=== PATIENT | female | born 1945 | race African-American/Black ===

== ENCOUNTER 2017-10-06 12:29 | Inpatient (IN) | payer BC ==
[~2017-10-06] VITALS: Ht 157.5 cm; Wt 54.9 kg
[2017-10-06] MEDS ORDERED: OYSCO-500500 M1 PO (12:37)
[2017-10-06] MEDS ORDERED: LISINOPRIL20 MG ORAL (12:37)
[2017-10-06] MEDS ORDERED: PRAVASTATIN SOD20 M1 ORAL ×2 (12:37→17:34)
[2017-10-06] MEDS ORDERED: PRILOSEC OTC20 MG ORAL (12:37)
[2017-10-06] MEDS ORDERED: LORATADINE10 M1 PO (12:37)
[2017-10-06] MEDS ORDERED: MAGNESIUM OXID250 MG PO (12:37)
[2017-10-06] MEDS ORDERED: WARFARIN SODIUM5 MG ORAL (12:37)
[2017-10-06] MEDS ORDERED: FOLIC ACID1 MG ORAL (12:37)
[2017-10-06] MEDS ORDERED: DIGOXIN125 MCG ORAL (12:37)
[2017-10-06] MEDS ORDERED: AMLODIPINE BESYL5 MG ORAL (12:37)
[2017-10-06] MEDS ORDERED: CLOPIDOGREL75 MG ORAL (12:37)
[2017-10-06] MEDS ORDERED: LABETALOL HCL200 MG ORAL (12:37)
[2017-10-06] MEDS ORDERED: FLUTICASONE PRO16 G1 NASAL (12:37)
[2017-10-06] MEDS ORDERED: Sodium Chloride 500ML 500 ML IV ONE (12:38)
[2017-10-06 13:03] LABS: HEMATOCRIT 45.5 % (37.0-47.0); HEMOGLOBIN 14.3 G/DL (12.0-16.0); MEAN CORPUSCULAR VOLUME 85 FL (80-99); PLATELET COUNT 285 K/UL (150-450); RED BLOOD COUNT 5.34 M/UL (4.20-5.40); RED CELL DISTRIBUTION WIDTH 14.2 % (11.6-14.8); WHITE BLOOD COUNT 18.3 K/UL (4.8-10.8)
[2017-10-06 13:13] LABS: ANION GAP 10 mmol/L (5-15); BLOOD UREA NITROGEN 16 mg/dL (7-18); CALCIUM 9.1 MG/DL (8.5-10.1); CARBON DIOXIDE 28 MMOL/L (21-32); CHLORIDE 103 MMOL/L (98-107); SODIUM 141 MMOL/L (136-145)
[2017-10-06 13:27] LABS: ALANINE AMINOTRANSFERASE 24 U/L (12-78); ALBUMIN 4.4 G/DL (3.4-5.0); ALBUMIN/GLOBULIN RATIO 1.1 (1.0-2.7); ALKALINE PHOSPHATASE 93 U/L (46-116); ASPARTATE AMINO TRANSFERASE 22 U/L (15-37); BILIRUBIN,TOTAL 0.9 MG/DL (0.2-1.0); CKMB 1.1 NG/ML (0.0-3.6); CREATINE KINASE 268 U/L (26-308)
[2017-10-06 14:00] VITALS: BP 138/66
--- NOTE | 2017-10-06 14:23 | Emergency Room Report ---
History of Present Illness General Chief Complaint: Abdominal Pain Source: Patient (Madina Ascencio DO) Present Illness HPI Patient presents with complaints of abdominal pain Patient reports that she had a biopsy performed yesterday looking at the medical records appears the patient had upper endoscopy with biopsy Patient presents that she has ongoing pain the pain is the same as before she had the endoscopy and reports that that was the reason for obtaining endoscopy she also had increased nausea vomiting Denies any lower abdominal pain denies any fevers denies any flank pain (Madina Ascencio DO) Allergies: Coded Allergies: CLARITHROMYCIN (Verified Allergy, Unknown, 10/06/17) PENICILLINS (Verified Allergy, Unknown, 10/06/17) Uncoded Allergies: ENVIRONMENTAL (Allergy, Unknown, 10/06/17) SULFA (Allergy, Unknown, 10/06/17) Patient History Past Medical History: see triage record Pertinent Family History: none Reviewed Nursing Documentation: PMH: Agreed; PSxH: Agreed (Madina Ascencio DO) Review of Systems All Other Systems: negative except mentioned in HPI (Madina Ascencio DO) Physical Exam Vital Signs Date Time Temp Pulse Resp B/P (MAP) Pulse Ox O2 Delivery O2 Flow Rate FiO2 10/06/17 12:29 97.3 82 18 125/79 99 Room Air 97.3 Sp02 EP Interpretation: reviewed, normal General Appearance: well appearing, no apparent distress Head: normocephalic, atraumatic Eyes: bilateral eye PERRL, bilateral eye EOMI ENT: hearing grossly normal, normal pharynx, TMs + canals normal, uvula midline Neck: full range of motion, supple, no meningismus, no bony tend Respiratory: lungs clear, normal breath sounds, no rhonchi, no respiratory distress, no retraction, no accessory muscle use Cardiovascular #1: normal peripheral pulses, regular rate, rhythm, no edema, no gallop, no JVD, no murmur Gastrointestinal: normal bowel sounds, non tender, soft, no mass, no organomegaly, non-distended, no guarding, no hernia, no pulsatile mass, no rebound Genitourinary: no CVA tenderness Musculoskeletal: normal inspection Neurologic: oriented x3, responsive, guide visitor III-XII nml as tested, motor strength/ tone normal, sensory intact Psychiatric: mood/affect normal Skin: normal color, no rash, warm/dry, palpation normal Lymphatic: normal inspection, no adenopathy (Madina Ascencio DO) Medical Decision Making Diagnostic Impression: Primary Impression: Abdominal pain ER Course With the history exam and presentation, multiple differentials considered, including but not limited to appendicitis, gastritis, cholecystitis, diverticulitis Given the recent upper endoscopy bowel perforation also entertained Chest x-ray does not show any free air patient's abdominal exam is soft her white blood cell count however does return elevated patient is covered with broad-spectrum antibiotics and requires further inpatient care Labs Test 10/06/17 12:50 White Blood Count 18.3 K/UL (4.8-10.8) Red Blood Count 5.34 M/UL (4.20-5.40) Hemoglobin 14.3 G/DL (12.0-16.0) Hematocrit 45.5 % (37.0-47.0) Mean Corpuscular Volume 85 FL (80-99) Mean Corpuscular Hemoglobin 26.8 PG (27.0-31.0) Mean Corpuscular Hemoglobin Concent 31.6 G/DL (32.0-36.0) Red Cell Distribution Width 14.2 % (11.6-14.8) Platelet Count 285 K/UL (150-450) Mean Platelet Volume 6.2 FL (6.5-10.1) Neutrophils (%) (Auto) % (45.0-75.0) Lymphocytes (%) (Auto) % (20.0-45.0) Monocytes (%) (Auto) % (1.0-10.0) Eosinophils (%) (Auto) % (0.0-3.0) Basophils (%) (Auto) % (0.0-2.0) Differential Total Cells Counted 100 Neutrophils % (Manual) 89 % (45-75) Lymphocytes % (Manual) 8 % (20-45) Monocytes % (Manual) 2 % (1-10) Eosinophils % (Manual) 0 % (0-3) Basophils % (Manual) 1 % (0-2) Band Neutrophils 0 % (0-8) Platelet Estimate Adequate Platelet Morphology Normal Red Blood Cell Morphology Normal Sodium Level 141 MMOL/L (136-145) Potassium Level 4.0 MMOL/L (3.5-5.1) Chloride Level 103 MMOL/L (98-107) Carbon Dioxide Level 28 MMOL/L (21-32) Anion Gap 10 mmol/L (5-15) Blood Urea Nitrogen 16 mg/dL (7-18) Creatinine 1.0 MG/DL (0.55-1.30) Estimat Glomerular Filtration Rate mL/min (>60) Glucose Level 113 MG/DL (74-106) Calcium Level 9.1 MG/DL (8.5-10.1) Total Bilirubin 0.9 MG/DL (0.2-1.0) Aspartate Amino Transf (AST/SGOT) 22 U/L (15-37) Alanine Aminotransferase (ALT/SGPT) 24 U/L (12-78) Alkaline Phosphatase 93 U/L (46-116) Total Creatine Kinase 268 U/L (26-308) Creatine Kinase MB 1.1 NG/ML (0.0-3.6) Creatine Kinase MB Relative Index 0.4 Troponin I 0.000 ng/mL (0.000-0.056) Total Protein 8.3 G/DL (6.4-8.2) Albumin 4.4 G/DL (3.4-5.0) Globulin 3.9 g/dL Albumin/Globulin Ratio 1.1 (1.0-2.7) (Madina Ascencio DO) ER Course Patient presents emergency department today complaining of abdominal pain. Differential considerations include ruptured viscus gastritis gastric ulcer GI bleeding just to name a few. Patient was initially seen by Dr. Madina Chaudhry and signed out to me for final disposition. I've also evaluated patient. Given patient's presentation and CT scan was obtained CT scan did not show any evidence of perforated viscus. However given elevated white blood cell count and abdominal pain felt the patient require admission. Case was discussed with Dr. Enrike Woods. Dr. Mckoy will also be consult. Patient will be admitted to [facility] further treatment. Labs Test 10/06/17 12:50 10/06/17 14:15 White Blood Count 18.3 K/UL (4.8-10.8) Red Blood Count 5.34 M/UL (4.20-5.40) Hemoglobin 14.3 G/DL (12.0-16.0) Hematocrit 45.5 % (37.0-47.0) Mean Corpuscular Volume 85 FL (80-99) Mean Corpuscular Hemoglobin 26.8 PG (27.0-31.0) Mean Corpuscular Hemoglobin Concent 31.6 G/DL (32.0-36.0) Red Cell Distribution Width 14.2 % (11.6-14.8) Platelet Count 285 K/UL (150-450) Mean Platelet Volume 6.2 FL (6.5-10.1) Neutrophils (%) (Auto) % (45.0-75.0) Lymphocytes (%) (Auto) % (20.0-45.0) Monocytes (%) (Auto) % (1.0-10.0) Eosinophils (%) (Auto) % (0.0-3.0) Basophils (%) (Auto) % (0.0-2.0) Differential Total Cells Counted 100 Neutrophils % (Manual) 89 % (45-75) Lymphocytes % (Manual) 8 % (20-45) Monocytes % (Manual) 2 % (1-10) Eosinophils % (Manual) 0 % (0-3) Basophils % (Manual) 1 % (0-2) Band Neutrophils 0 % (0-8) Platelet Estimate Adequate Platelet Morphology Normal Red Blood Cell Morphology Normal Sodium Level 141 MMOL/L (136-145) Potassium Level 4.0 MMOL/L (3.5-5.1) Chloride Level 103 MMOL/L (98-107) Carbon Dioxide Level 28 MMOL/L (21-32) Anion Gap 10 mmol/L (5-15) Blood Urea Nitrogen 16 mg/dL (7-18) Creatinine 1.0 MG/DL (0.55-1.30) Estimat Glomerular Filtration Rate mL/min (>60) Glucose Level 113 MG/DL (74-106) Calcium Level 9.1 MG/DL (8.5-10.1) Total Bilirubin 0.9 MG/DL (0.2-1.0) Aspartate Amino Transf (AST/SGOT) 22 U/L (15-37) Alanine Aminotransferase (ALT/SGPT) 24 U/L (12-78) Alkaline Phosphatase 93 U/L (46-116) Total Creatine Kinase 268 U/L (26-308) Creatine Kinase MB 1.1 NG/ML (0.0-3.6) Creatine Kinase MB Relative Index 0.4 Troponin I 0.000 ng/mL (0.000-0.056) Total Protein 8.3 G/DL (6.4-8.2) Albumin 4.4 G/DL (3.4-5.0) Globulin 3.9 g/dL Albumin/Globulin Ratio 1.1 (1.0-2.7) Urine Color Yellow Urine Appearance Clear Urine pH 6 (4.5-8.0) Urine Specific [place] 1.020 (1.005-1.035) Urine Protein 1+ (NEGATIVE) Urine Glucose (UA) Negative (NEGATIVE) Urine Ketones 2+ (NEGATIVE) Urine Occult Blood 1+ (NEGATIVE) Urine Nitrite Negative (NEGATIVE) Urine Bilirubin Negative (NEGATIVE) Urine Urobilinogen Normal MG/DL (NORMAL) Urine Leukocyte Esterase 1+ (NEGATIVE) Urine RBC 2-4 /HPF (0 - 2) Urine WBC 2-4 /HPF (0 - 2) Urine Squamous Epithelial Cells Few /LPF (NONE/OCC) Urine Amorphous Sediment Few /LPF (NONE) Urine Bacteria Few /HPF (NONE) (Alferdo Hidalgo MD) Chest X-Ray Diagnostic Results Chest X-Ray Diagnostic Results : Chest X-Ray Ordered: Yes # of Views/Limited/Complete: 1 View Indication: Chest Pain EP Interpretation: Yes Interpretation: no consolidation, no effusion, no pneumothorax Impression: No acute disease Electronically Signed by: Madina Ascencio DO (Madina Ascencio DO) Last Vital Signs Date Time Temp Pulse Resp B/P (MAP) Pulse Ox O2 Delivery O2 Flow Rate FiO2 10/06/17 12:29 97.3 82 18 125/79 99 Room Air 97.3 Status: improved (Madina Ascencio DO) Status: improved (Alfredo Hidalgo MD) Disposition: ADMITTED INPATIENT Condition: Serious Referrals: NOT CHOSEN IPA/,REFERRING (PCP) Madina Ascencio DO Oct 06, 2017 14:23 Alfredo Hidalgo MD Oct 06, 2017 16:06
--- NOTE | 2017-10-06 14:50 | Diagnostic Imaging Report ---
Indication: Chest pain Technique: XRAY Chest 1v Comparison: 05/17/2007 Findings: Heart size and mediastinal contours within normal limits and stable compared to the prior exam. Patient again noted to be status post median sternotomy. There is no focal airspace consolidation, pleural effusion or pneumothorax. There are degenerative changes in the spine. No acute osseous abnormality. Impression: No radiographic evidence of acute cardiopulmonary disease.
[2017-10-06 14:57] LABS: APPEARANCE,URINE CLEAR; BILIRUBIN, URINE NEGATIVE (NEGATIVE); GLUCOSE, URINE (UA) NEGATIVE (NEGATIVE); KETONES,URINE 2+ (NEGATIVE); LEUKOCYTE ESTERASE ,URINE 1+ (NEGATIVE); NITRITE,URINE NEGATIVE (NEGATIVE); PH,URINE 6 (4.5-8.0); PROTEIN,URINE 1+ (NEGATIVE); UROBILINOGEN,URINE NORMAL (NORMAL)
[2017-10-06 15:00] LABS: COLOR,URINE YELLOW
--- NOTE | 2017-10-06 15:28 | Diagnostic Imaging Report ---
Indication: Abdominal pain Technique: Noncontrast CT of the abdomen and pelvis utilizing automated exposure control. Axial, sagittal and coronal reformats presented. CT dose: Total DLP 620.54 mGycm; CTDI vol 12.77 mGy Comparison: None Findings: Please note that evaluation of the abdominal and pelvic viscera and vascular structures is limited without the use of intravenous and oral contrast. Within these limitations the following observations are made: There is dependent atelectasis in the lung bases. Heart size within normal limits. No definite pericardial effusion. Patient is status post cholecystectomy. Noncontrast evaluation of the liver, spleen, adrenal glands and pancreas grossly unremarkable. Kidneys are symmetric in size. There is a cyst in the upper pole the right kidney. There is no urinary tract stone or hydronephrosis bilaterally. Bladder is decompressed, limiting its evaluation. Uterus and adnexa are grossly unremarkable for noncontrast CT. There is no free intraperitoneal air or fluid. There is a biopsy clip in the distal stomach. There is some distal gastric wall thickening which may be related to underdistention however the possibility of peptic ulcer disease or other etiologies not excludable. Correlate with findings of recent endoscopy. There is no evidence of bowel obstruction. Appendix is normal. No pathologically enlarged lymphadenopathy. Abdominal aorta normal in caliber with scattered atherosclerotic calcification. There is a tiny fat-containing umbilical hernia. There are degenerative changes in the spine. No acute osseous abnormality. There is a sclerotic focus in the left pubic bone which may represent a bone island. IMPRESSION: Limited exam without intravenous and oral contrast. Within these limitations: * Biopsy clip in the distal stomach/gastric antrum. Gastric wall thickening this area is noted which may be related to underdistention, gastritis, peptic ulcer disease or mass. Correlate with findings of recent endoscopy. * No free intraperitoneal air. No evidence of bowel obstruction. * Normal appendix. Additional findings as above. The CT scanner at [facility] is accredited by the [employer] and the scans are performed using protocols designed to limit radiation exposure to as low as reasonably achievable to attain images of sufficient resolution adequate for diagnostic evaluation.
[2017-10-06 16:00] VITALS: BP 117/55
[2017-10-06] MEDS ORDERED: Pantoprazole Inj IVP ONE (16:15)
[2017-10-06] MEDS ORDERED: VITAMIN B-12500 MCG ORAL (17:42)
[2017-10-06 18:00] VITALS: BP 127/49
[2017-10-06] MEDS ORDERED: Isovue-300 100ml vial INJ PRN (18:15)
[2017-10-06 19:52] VITALS: BP 124/60
--- NOTE | 2017-10-06 20:22 | General Progress Note ---
Assessment/Plan Assessment/Plan Assessment - Few months of progressive abd pain - abd pain (? slight worse) now with N/V and leukocytosis since EGD yesterday - metal clip seen on CT in gastric antrum - ? source / nature Recommendations - NPO/IVF - broad spectrum abx - follow labs - CT abd/pelvis with PO/IV contrast - await call back from outside GI MD Thank you Phylicia Orlando MD Subjective Allergies: Coded Allergies: CLARITHROMYCIN (Verified Allergy, Unknown, 10/06/17) PENICILLINS (Verified Allergy, Unknown, 10/06/17) Uncoded Allergies: ENVIRONMENTAL (Allergy, Unknown, 10/06/17) SULFA (Allergy, Unknown, 10/06/17) Objective Last 24 Hour Vital Signs Date Time Temp Pulse Resp B/P (MAP) Pulse Ox O2 Delivery O2 Flow Rate FiO2 10/06/17 20:03 98.6 91 17 124/60 98 Room Air 98.6 10/06/17 19:52 98.6 91 17 124/60 98 Room Air 98.6 10/06/17 18:00 74 17 127/49 99 Room Air 10/06/17 16:00 97.3 77 18 117/55 99 Room Air 97.3 10/06/17 14:00 79 16 138/66 100 Room Air 10/06/17 12:29 97.3 82 18 125/79 99 Room Air 97.3 Laboratory Tests 10/06/17 12:50: White Blood Count 18.3H, Red Blood Count 5.34, Hemoglobin 14.3, Hematocrit 45.5 , Mean Corpuscular Volume 85, Mean Corpuscular Hemoglobin 26.8L, Mean Corpuscular Hemoglobin Concent 31.6L, Red Cell Distribution Width 14.2, Platelet Count 285, Mean Platelet Volume 6.2L, Neutrophils (%) (Auto) , Lymphocytes (%) (Auto) , Monocytes (%) (Auto) , Eosinophils (%) (Auto) , Basophils (%) (Auto) , Differential Total Cells Counted 100, Neutrophils % ( Manual) 89H, Lymphocytes % (Manual) 8L, Monocytes % (Manual) 2, Eosinophils % ( Manual) 0, Basophils % (Manual) 1, Band Neutrophils 0, Platelet Estimate Adequate, Platelet Morphology Normal, Red Blood Cell Morphology Normal, Sodium Level 141, Potassium Level 4.0, Chloride Level 103, Carbon Dioxide Level 28, Anion Gap 10, Blood Urea Nitrogen 16, Creatinine 1.0, Estimat Glomerular Filtration Rate , Glucose Level 113H, Calcium Level 9.1, Total Bilirubin 0.9, Aspartate Amino Transf (AST/SGOT) 22, Alanine Aminotransferase (ALT/SGPT) 24, Alkaline Phosphatase 93, Total Creatine Kinase 268, Creatine Kinase MB 1.1, Creatine Kinase MB Relative Index 0.4, Troponin I 0.000, Total Protein 8.3H, Albumin 4.4, Globulin 3.9, Albumin/Globulin Ratio 1.1 10/06/17 14:15: Urine Color Yellow, Urine Appearance Clear, Urine pH 6, Urine Specific [place] 1.020, Urine Protein 1+H, Urine Glucose (UA) Negative, Urine Ketones 2+H, Urine Occult Blood 1+H, Urine Nitrite Negative, Urine Bilirubin Negative, Urine Urobilinogen Normal, Urine Leukocyte Esterase 1+H, Urine RBC 2-4H, Urine WBC 2-4 , Urine Squamous Epithelial Cells Few, Urine Amorphous Sediment FewH, Urine Bacteria Few Height (Feet): 5 Height (Inches): 2.00 Weight (Pounds): 120 Phylicia Orlando MD Oct 06, 2017 20:22
[2017-10-06 20:30] VITALS: BP 129/70
[2017-10-07] VITALS: BP 120/68
--- NOTE | 2017-10-07 02:30 | Consultation ---
DATE OF CONSULTATION: 10/06/2017 GASTROENTEROLOGY CONSULTATION CHIEF COMPLAINT: I was asked to see this patient by Dr. Enrike Woods for evaluation of abdominal pain. HISTORY OF PRESENT ILLNESS: The patient is a 72-year-old woman, who is here with abdominal pain and vomiting. The patient states that she had AN endoscopy yesterday by Dr. Valdemar Lyon at [facility]. The endoscopy itself was done for a complaint of abdominal pain, which has been going on for several months and gradually becoming worse. She states that the pain started about 4 or 5 months ago and initially was intermittent, but lately has progressed to nearly constant level to the level epigastric, but there is no vomiting. She had an endoscopy done yesterday and the patient actually had reports of the procedures with pictures with her. The report states that there is some nodularity, irregularity, erythema and, granularity seen in the stomach, body, and along the greater curvature. Biopsies were performed. There was also some erythema at the gastroesophageal junction noted. The patient was subsequently discharged home, but now comes in with same or slightly worsened version of the same abdominal pain, but she also has had nausea and vomiting, which is a near future. In the emergency room here at [facility], she was found to have an elevated white count of 18,000 and therefore, she is being admitted for further evaluation and observation. The patient states that she had an endoscopy and colonoscopy about two years ago and all she can remember is there was some palpable nodule found. The patient has a long list of extensive medical problems and medications, which are outlined below. PAST MEDICAL HISTORY: History of hypercholesterolemia, history of mitral valve replacement, history of hypertension, and history of gastric nodule as described above. MEDICATIONS: Amlodipine, clopidogrel, digoxin, fluticasone, labetalol, lisinopril, omeprazole, pravastatin, and warfarin. ALLERGIES: Biaxin, penicillin, and sulfa. FAMILY HISTORY: Noncontributory. SOCIAL HISTORY: The patient normally gets her care at [facility]. She does smoke cigarettes, but does not drink alcohol. REVIEW OF SYSTEMS: Otherwise negative. PHYSICAL EXAMINATION: GENERAL: A pleasant woman, seen in the emergency room. HEENT: Normocephalic and atraumatic. Sclerae anicteric. Dentition was fair. NECK: Supple. CHEST: Revealed coarse breath sounds. CARDIOVASCULAR: Revealed regular rate. ABDOMEN: Soft with some epigastric tenderness to palpation, which was mild without guarding or rebound. There was no masses appreciable. EXTREMITIES: Revealed no edema. LABORATORY DATA: Reviewed was specifically notable for a white count of 18,000. There were few red cells seen in the urine. The CT scan of the abdomen and pelvis with no intravenous and no oral contrast had been performed earlier today showing a "biopsy clip in the distal stomach/gastric antrum and some degree of gastric wall thickening in the area." There was, however, no free intraperitoneal air or bowel obstruction noted. The patient is status post cholecystectomy. ASSESSMENT: This patient presents with abdominal pain, nausea, vomiting, and leukocytosis in about 24 hours after an upper endoscopic examination. The patient's abdominal pain seems to be similar to the preoperative abdominal pain prior to the endoscopy. However, nausea and vomiting appeared to be new and leukocytosis is concerning. The finding of a metal clip in the area of the biopsy of the gastric antrum was unusual since the biopsy forceps did not leave any metal clips behind. The procedure report does not mention any hemostatic clips that were placed during the endoscopy and therefore this finding needs to be further evaluated. I placed a call out through the answering service to Dr. Valdemar Lyon to ask him about this metal clip finding. In the meantime, the patient should be kept NPO and she is undergoing a more comprehensive CT scan of the abdomen and pelvis with oral and IV contrast to better evaluate the gastrointestinal tract. The broad-spectrum antibiotics should be given to cover the gut ike. The intravenous fluids and hydration should be administered as well. RECOMMENDATIONS: Per above discussion and per orders written in the chart. Thank you for asking me to participate in the care of this patient. Phylicia Orlando M.D. DR: STEVEN JOB#: [id number] CC: ELEANOR
[2017-10-07 04:00] VITALS: BP 136/70
[2017-10-07 08:00] VITALS: BP 133/68
[2017-10-07] MEDS ORDERED: Lisinopril 10mg tab ORAL SCH (09:00)
[2017-10-07] MEDS ORDERED: Vitamin B-12 500mcg tab ORAL SCH (09:00)
[2017-10-07] MEDS ORDERED: Labetalol 200mg tab ORAL SCH (09:00)
[2017-10-07] MEDS ORDERED: Isovue-300 100ml vial INJ PRN (09:15)
[2017-10-07 09:46] LABS: BASOPHILS % (AUTO) 0.4 % (0.0-2.0); HEMATOCRIT 39.9 % (37.0-47.0); LYMPHOCYTES % (AUTO) 15.1 % (20.0-45.0); MEAN CORPUSCULAR VOLUME 84 FL (80-99); MONOCYTES % (AUTO) 6.1 % (1.0-10.0); NEUTROPHILS % (AUTO) 77.5 % (45.0-75.0); PLATELET COUNT 245 K/UL (150-450); RED BLOOD COUNT 4.75 M/UL (4.20-5.40); RED CELL DISTRIBUTION WIDTH 13.6 % (11.6-14.8); WHITE BLOOD COUNT 11.7 K/UL (4.8-10.8)
[2017-10-07 09:53] LABS: INR 1.3 (0.9-1.1)
[2017-10-07] MEDS ORDERED: Flonase Nasal Inhaler 16gm NASAL SCH (10:00)
--- NOTE | 2017-10-07 11:04 | Diagnostic Imaging Report ---
Indication: Abdominal pain Technique: CT of the abdomen and pelvis with IV and oral contrast utilizing automated exposure control. Axial, sagittal and coronal reformats presented. CT dose: Total DLP 532.53 mGycm; CTDI vol 10.68 mGy Comparison: Noncontrast CT scan from earlier the same day (10/06/2017, 14:55). Findings: There is dependent atelectasis in the lung bases. Heart within normal limits. Probable mitral annular calcifications. No pericardial effusion. Liver is normal in size and contour. No focal hepatic mass lesion is appreciated on this single phase exam. Hepatic veins and portal veins are patent. Patient is again noted to be status post cholecystectomy. Spleen, adrenal glands and pancreas unremarkable. Kidneys are symmetric in size. There are some well-circumscribed low-attenuation structures in the bilateral kidneys which are too small to fully characterize but likely represent cysts. There is no urinary tract stone or hydronephrosis bilaterally. Uterus, adnexa and bladder unremarkable. There is no free intraperitoneal air or fluid. There is no bowel obstruction. The appendix is normal. A 14 to 15 mm metallic density structure is again noted in the distal stomach which may represent a biopsy clip; additional metallic foreign bodies or surgical materials can be considered. The location of this structure appears slightly more proximal compared to prior exam although this may be related to differences in degree of stomach distention. Again there is some wall thickening in the distal stomach/gastric antrum. No pathologically enlarged lymphadenopathy. Abdominal aorta normal in caliber with scattered atherosclerotic calcification, including calcifications of the mesenteric artery branches. There is a tiny fat-containing umbilical hernia. There are degenerative changes in the spine. No acute osseous abnormality. There is a sclerotic focus in the left pubic bone which may represent a bone island. IMPRESSION: * Approximately 14 to 15 mm linear metallic density structure again noted in the distal stomach (series 3 image #27 current exam; series 3 image 46 prior exam). This may represent a biopsy clip or additional metallic structure/surgical material. Correlation with report of prior endoscopy recommended. Alternatively, repeat endoscopy can be performed for further evaluation. Again there is some thickening in the distal stomach/gastric antrum. * No free intraperitoneal air. No evidence of bowel obstruction. * Normal appendix. Additional findings as above, not significantly change from the prior exam. Findings discussed with via telephone conversation the morning of 10/07/2017. The CT scanner at [facility] is accredited by the [employer] and the scans are performed using protocols designed to limit radiation exposure to as low as reasonably achievable to attain images of sufficient resolution adequate for diagnostic evaluation.
[2017-10-07 12:00] VITALS: BP 129/71
--- NOTE | 2017-10-07 13:11 | History & Physical ---
History and Physical History & Physicial dict pain better WBC down await GI recs start PO diet Enrike Woods MD Oct 07, 2017 13:11
[2017-10-07 15:54] VITALS: BP 108/71
--- NOTE | 2017-10-07 16:06 | Cardiology Report ---
APPROVED REPORT EKG Measurement Heart [id number] Normal sinus rhythm Normal ECG
--- NOTE | 2017-10-07 16:45 | History and Physical Report ---
DATE OF ADMISSION: 10/06/2017 CHIEF COMPLAINT: Abdominal pain. HISTORY OF PRESENT ILLNESS: The patient is a 72-year-old woman, who comes to the hospital because of increasing abdominal pain. She had pain for several months and had upper endoscopy yesterday at the [facility]. Following the procedure, the pain became much more severe and she was vomiting. She came to the emergency department here after she called her physician. She required pain medication and fluids and this morning is feeling better. The cause of the pain is not known at this time. She was seen by the gastrointestinal product consultant last night here. PAST MEDICAL HISTORY: Includes mitral valve replacement with a mechanical valve, anticoagulation, hypertension, hyperlipidemia, and abdominal pain with a gastric nodule. MEDICATIONS: Reviewed and reconciled. ALLERGIES: Biaxin, penicillin, and sulfa. FAMILY HISTORY: Noncontributory. SOCIAL HISTORY: She does not drink or smoke. She lives at home. REVIEW OF SYSTEMS: Otherwise unremarkable. PHYSICAL EXAMINATION: GENERAL: The patient is alert and responds appropriately. VITAL SIGNS: Stable. Blood pressure is normal. HEENT: The head is normocephalic. NECK: No jugular venous distention. Sclerae nonicteric. CHEST: Clear. CARDIAC: Rhythm is regular with a mechanical heart tones heard. ABDOMEN: Soft and nontender. Liver and spleen are not enlarged. There is no mass or ascites. EXTREMITIES: No clubbing, cyanosis, or edema. LABORATORY STUDIES: Reviewed. The white count is elevated at 18,300. This morning it improved to 11,700. Hemoglobin is 14.3. INR is 1.3. Chemistry was unremarkable with slight increase in glucose and total protein. Urinalysis was negative for any acute infection. IMPRESSION: 1. Abdominal pain with nausea and vomiting. 2. Mitral valve replacement with mechanical prosthesis, on anticoagulants, underdosed. 3. Hypertension. 4. Hyperlipidemia. PLAN: The patient's Coumadin will be adjusted by the pharmacist. She will remain NPO until I consult with the gastrointestinal specialist. CT scans have been done, but the final report is pending. She is feeling better and the white count has improved. Early discharge is anticipated. Enrike Woods M.D. DR: THEODORE JOB#: [id number] CC: Phylicia Orlando M.D.; Fax#: [phone]
[2017-10-07] MEDS ORDERED: Warfarin Sodium 5mg ORAL SCH (17:00)
--- NOTE | 2017-10-07 19:11 | General Progress Note ---
Assessment/Plan Assessment/Plan Assessment - Few months of abd pain, better - outpatient w/u - metal clip seen on CT in gastric antrum - endoclip Recommendations - advance diet - d/c planning - pt to f/u with Dr. Valdemar Lyon as outpt Subjective Allergies: Coded Allergies: CLARITHROMYCIN (Verified Allergy, Unknown, 10/06/17) PENICILLINS (Verified Allergy, Unknown, 10/06/17) Uncoded Allergies: ENVIRONMENTAL (Allergy, Unknown, 10/06/17) SULFA (Allergy, Unknown, 10/06/17) Subjective Feels better no vomiting pain better d/w Dr. Lyon - patient had an endoclip placed 6 mo ago and this endoclip WAS seen on EGD 2 days ago (he did not dictate this in his report) Objective Last 24 Hour Vital Signs Date Time Temp Pulse Resp B/P (MAP) Pulse Ox O2 Delivery O2 Flow Rate FiO2 10/07/17 15:54 97.6 87 19 108/71 (83) 100 97.6 10/07/17 12:00 96.1 81 19 129/71 (90) 100 96.1 10/07/17 09:25 82 133/68 10/07/17 09:25 82 133/68 10/07/17 09:24 133/68 10/07/17 08:15 Room Air 10/07/17 08:00 98.2 82 20 133/68 (89) 99 98.2 10/07/17 04:00 97.7 89 19 136/70 (92) 100 97.7 10/07/17 00:00 98.1 84 18 120/68 (85) 98.1 10/06/17 20:30 98.1 84 20 129/70 (89) 100 98.1 10/06/17 20:03 98.6 91 17 124/60 98 Room Air 98.6 10/06/17 20:00 Room Air 10/06/17 19:52 98.6 91 17 124/60 98 Room Air 98.6 Intake and Output 10/06/17 10/07/17 19:00 07:00 Intake Total 500 ml 75 ml Output Total 80 ml Balance 420 ml 75 ml IV Total 500 ml 75 ml Output Urine Total 80 ml # Voids 1 1 Laboratory Tests 10/07/17 09:00: White Blood Count 11.7H, Red Blood Count 4.75, Hemoglobin 13.0, Hematocrit 39.9 , Mean Corpuscular Volume 84, Mean Corpuscular Hemoglobin 27.3, Mean Corpuscular Hemoglobin Concent 32.5, Red Cell Distribution Width 13.6, Platelet Count 245, Mean Platelet Volume 6.6, Neutrophils (%) (Auto) 77.5H, Lymphocytes ( %) (Auto) 15.1L, Monocytes (%) (Auto) 6.1, Eosinophils (%) (Auto) 1.0, Basophils (%) (Auto) 0.4, Prothrombin Time 13.0H, Prothromb Time International Ratio 1.3H Height (Feet): 5 Height (Inches): 2.00 Weight (Pounds): 121 Objective WDWN NCAT supple CTA RRR soft ND no edema non focal Phylicia Orlando MD Oct 07, 2017 19:11
--- NOTE | 2017-10-08 09:59 | Discharge Summary ---
Discharge Summary Discharge Summary _ DATE OF ADMISSION: 10/06/2017 DATE OF DISCHARGE: 10/07/2017 CONSULTANTS: Dr. Phylicia Orlando BRIEF HOSPITAL COURSE: Patient is a 72-year-old female, who came to the hospital because of increased abdominal pain. She had been having pain for the past several months and had upper endoscopy at [facility] the day prior to admission. Following procedure, she complained pain became much more severe and was vomiting. She presented to the emergency department. She has medical history notable for mitral valve replacement with mechanical valve, hypertension, hyperlipidemia and gastric nodule. On evaluation at ED, vital signs were stable. Blood work showed leukocytosis WBC was elevated to 18. Chemistry was unremarkable with slight increase in glucose and total protein. Urinalysis was negative for any acute infection. CT of the abdomen and pelvis showed a biopsy clip in the distal stomach/gastric antrum. There was no free intraperitoneal air, no evidence of bowel obstruction. She was admitted for evaluation of abdominal pain, in lieu of recent endoscopy. She was restarted on anticoagulation, Coumadin pharmacy to dose. She was kept NPO. She was seen by Gastro enterologist. A repeat CT scan of the abdomen and pelvis with contrast was done and again showed linear metallic density in the distal stomach. A call was made to reach out with the GI doctor who performed the EGD. And per conversation with Dr. Orlando, and Endo Clip was placed 6 months ago, and Endo Clip was seen on recent EGD. There was no more vomiting. Diet was advanced. She was tolerating diet. Due to rapid improvement in patient's symptoms and negative workup, patient was discharged home. FINAL DIAGNOSES: Abdominal pain with nausea and vomiting status post recent endoscopic procedure Mitral valve replacement with mechanical prosthesis, on anticoagulation Hypertension Hyperlipidemia DISPOSITION: Patient was discharged home. DISCHARGE MEDICATIONS: Refer to Discharge Medication List. DISCHARGE INSTRUCTIONS: Follow up with PCP in a week. I have been assigned to dictate discharge summary on this account, and I was not involved in the patient's management. Martina Brandt NP Oct 08, 2017 09:59
== END 2017-10-07 17:45 | disposition home or self-care (01) | DRG 392 ==
LOC: EDBD 12:29 → EMR 13:05 → 3E 15:05 → EDBEDREQ 18:33
DX: R10.9 Unspecified abdominal pain (principal); R11.2 Nausea with vomiting, unspecified; Z79.01 Long term (current) use of anticoagulants; Z95.2 Presence of prosthetic heart valve; I10 Essential (primary) hypertension; E78.5 Hyperlipidemia, unspecified; Z88.0 Allergy status to penicillin; Z88.2 Allergy status to sulfonamides
CPT/HCPCS: 36415; 71045; 74176; 74177; 80053; 81003; 82550; 82553; 84484; 85007; 85025; 85610; 93005